=== PATIENT | female | born 1955 ===

== ENCOUNTER 2024-12-22 09:03 | Outpatient (CLI) | payer OTHER | END 2024-12-22 09:04 | disposition home or self-care (01) | LOC: SONOGRAMA 09:03 | DX: N84.0 Polyp of corpus uteri (principal) ==

== ENCOUNTER 2025-02-23 12:08 | Outpatient (CLI) | payer OTHER | END 2025-02-23 12:11 | disposition home or self-care (01) | LOC: SONOGRAMA 12:08 | PROVIDERS: ATTEND Pathology Anatomic Pathology & Clinical Pathology | DX: D34 Benign neoplasm of thyroid gland (principal); E07.89 Other specified disorders of thyroid; E04.2 Nontoxic multinodular goiter ==